=== PATIENT | male | born 1940 | race Hispanic/Latino ===

== ENCOUNTER 2019-08-29 12:04 | Outpatient (CLI) | payer OTHER ==
--- NOTE | 2019-08-29 12:52 | RAD ---
XR Chest Pa Lat STANDARD History: Occupational exposure to asbestos Comparison: None. Findings: Lungs are clear. No pneumothorax or effusion. Cardiac silhouette and mediastinal contours a re within normal limits. No acute osseous abnormality. No calcified pleural plaques are appreciated. Impression: No acute intrathoracic abnormality.
== END 2019-08-29 12:05 | disposition home or self-care (01) ==
LOC: BICRAD 12:04
PROVIDERS: ATTEND Orthopaedic Surgery Orthopaedic Surgery of the Spine
DX: Z77.090 Contact with and (suspected) exposure to asbestos (principal)
CPT/HCPCS: 71046